=== PATIENT | male | born 1990 | race Caucasian/White ===

== ENCOUNTER 2016-06-01 20:37 | Emergency (ER) | payer OTHER ==
[~2016-06-01] VITALS: Ht 165.1 cm; Wt 65.1 kg
[2016-06-01 21:25] VITALS: BP 159/70
== END 2016-06-01 21:30 | disposition home or self-care (01) ==
LOC: EME 20:37
DX: R10.31 Right lower quadrant pain (principal); R10.32 Left lower quadrant pain; K62.89 Other specified diseases of anus and rectum; Z87.891 Personal history of nicotine dependence
CPT/HCPCS: 99281; 99283